=== PATIENT | male | born 1970 | race Caucasian/White ===

== ENCOUNTER 2018-03-08 18:20 | Emergency (ER) | payer OTHER ==
[~2018-03-08] VITALS: Ht 172.7 cm; Wt 95.3 kg
[2018-03-08 18:25] VITALS: BP 138/81; Ht 172.7 cm; Wt 95.3 kg
== END 2018-03-08 19:31 | disposition home or self-care (01) ==
LOC: ED 18:20
DX: L23.7 Allergic contact dermatitis due to plants, except food (principal)
CPT/HCPCS: J2930